=== PATIENT | male | born 1975 | race African-American/Black ===

== ENCOUNTER 2017-03-28 12:11 | Emergency (ER) | payer SELFPAY ==
[2017-03-28] MEDS ORDERED: Ketorolac Tromethamine 30 MG/ML VIAL ONE (13:04)
[2017-03-28 13:20] LABS: CKMB 1.9 ng/mL (0-6.6); Troponin I 0.015 ng/mL (< 0.028)
[2017-03-28 13:21] LABS: #Basophils 0.1 thou/uL (0.0-0.2); #Eosinphils 0.2 thou/uL (0.0-0.7); #Lymphocytes 1.7 thou/uL (1.20-3.40); #Monocytes 0.7 thou/uL (0.11-0.59); #Neutrophils 4.9 thou/uL (1.40-6.50); %Basophils 1.3 % (0.0-1.0); %Eosinophils 2.4 % (0.0-10.0); %Lymphocytes 22.2 % (21.0-51.0); %Monocytes 8.7 % (0.0-10.0); %Neutrophils 65.4 % (42.0-75.0); Anisocytosis SLIGHT = 6-15 cells (100X) (0-5/hpf); Hemoglobin 11.9 g/dL (14.0-18.0); MDiff Complete? YES; Mean Corpuscular HGB CONC 30.5 g/dL (32.0-36.0); Mean Corpuscular Hemoglobin 24.2 pg (27.0-31.0); Mean Corpuscular Volume 79.2 fl (80.0-94.0); Mean Platelet Volume 8.5 fL (7.4-10.4); Microcytosis SLIGHT = 6-15 cells (100X) (0-5/hpf); PLT Morphology Comment Appears Adequate; Platelet Count 238 thou/uL (130-400); RBC Distribution Width 13.6 % (11.5-14.5); Red Blood Cell (RBC) Count 4.91 mill/uL (4.70-6.10); White Blood Cell (WBC) Count 7.5 thou/uL (4.8-10.8)
[2017-03-28 13:23] LABS: ALT (SGPT) 15 U/L (8-55); AST (SGOT) 13 U/L (5-34); Albumin 3.9 g/dL (3.5-5.0); Alkaline Phosphatase 94 U/L (40-150); Anion Gap 12 mmol/L (10-20); BUN (Urea Nitrogen) 10 mg/dL (8.9-20.6); Bilirubin, Total 0.6 mg/dL (0.2-1.2); CK (CPK) 168 U/L (30-200); Calc. Creatinine Clearance 0 mL/min (70-130); Calcium 9.4 mg/dL (7.8-10.44); Carbon Dioxide 27 mmol/L (22-29); Chloride 105 mmol/L (98-107); Estimated GFR-MDRD Greater than 90; Globulin 3.2 g/dL (2.4-3.5); Glucose 103 mg/dL (70-105); Potassium 3.9 mmol/L (3.5-5.1); Protein, Total 7.1 g/dL (6.0-8.3); Sodium 140 mmol/L (136-145)
[2017-03-28] MEDS ORDERED: Lisinopril 10 MG TAB ONE (13:42)
== END 2017-03-28 14:21 | disposition home or self-care (01) ==
LOC: NAV ERS 12:11
DX: I10 Essential (primary) hypertension (principal); F41.9 Anxiety disorder, unspecified; F17.210 Nicotine dependence, cigarettes, uncomplicated
CPT/HCPCS: 80053; 82553; 83880; 84484; 85025; 93005; 96374; 96375; J0360; J1885

== ENCOUNTER 2017-04-04 12:41 | Emergency (ER) | payer SELFPAY ==
[2017-04-04] MEDS ORDERED: Ketorolac Tromethamine 60 MG/2 ML VIAL ONE (13:00)
== END 2017-04-04 13:23 | disposition home or self-care (01) ==
LOC: NAV ERS 12:41
DX: R59.0 Localized enlarged lymph nodes (principal); I10 Essential (primary) hypertension; F41.9 Anxiety disorder, unspecified; F17.210 Nicotine dependence, cigarettes, uncomplicated
CPT/HCPCS: 96372; J1885

== ENCOUNTER 2019-06-23 16:57 | Emergency (ER) | payer SELFPAY ==
[2019-06-23] MEDS ORDERED: cloNIDine 0.2 MG TAB ONE ×2 (17:07→17:09)
[2019-06-23 17:44] LABS: Anion Gap 14 mmol/L (10-20); BUN (Urea Nitrogen) 15 mg/dL (8.9-20.6); Calc. Creatinine Clearance 0 mL/min (70-130); Carbon Dioxide 26 mmol/L (22-29); Chloride 106 mmol/L (98-107); Estimated GFR-MDRD Greater than 90; Glucose 122 mg/dL (70-105); Potassium 3.9 mmol/L (3.5-5.1); Sodium 142 mmol/L (136-145)
== END 2019-06-23 18:06 | disposition home or self-care (01) ==
LOC: NAV ERS 16:57
DX: I10 Essential (primary) hypertension (principal); F17.210 Nicotine dependence, cigarettes, uncomplicated; F41.9 Anxiety disorder, unspecified; Z79.899 Other long term (current) drug therapy
CPT/HCPCS: 80048; 99283